=== PATIENT | male | born 1955 | race Caucasian/White ===

== ENCOUNTER → 2016-07-10 | Outpatient (CLI) | payer BC ==
[2016-07-10 07:43] LABS: MEAN CORPUSCULAR HEMOGLOBIN 30.4 pg (27.0-33.0); MEAN CORPUSCULAR HGB CONC 34.4 g/dl (32.0-36.5); MEAN CORPUSCULAR VOLUME 88.3 fl (80.0-96.0); RED CELL DISTRIBUTION WIDTH 13.2 % (11.5-14.5)
--- NOTE | 2016-07-10 07:53 | REP ---
Clinical: Chest pain. Technique: PA and lateral. Comparison: 09/19/2015. Findings: Mediastinum and cardiac silhouette are normal. Lung howell demonstrate chronic-appearing mid to lower lobe changes. Superimposed right middle lobe atelectasis cannot be excluded. No effusion. No pneumothorax. Skeletal structures intact. Impression: Chronic changes. Cannot exclude superimposed right middle lobe atelectasis. Signed by Peng Keita MD 07/10/2016 07:45 A
[2016-07-10 08:14] LABS: ALBUMIN 3.7 GM/DL (3.2-5.2); ALKALINE PHOSPHATASE 61 U/L (45-117); ALT/SGPT 47 U/L (12-78); ANION GAP 8 MEQ/L (8-16); AST/SGOT 22 U/L (15-37); BILIRUBIN,TOTAL 0.5 MG/DL (0.2-1.0); BLOOD UREA NITROGEN 13 MG/DL (7-18); CALCIUM LEVEL 8.4 MG/DL (8.5-10.1); CARBON DIOXIDE LEVEL 28 MEQ/L (21-32); CHLORIDE LEVEL 101 MEQ/L (98-107); CHOLESTEROL LEVEL 168 MG/DL (<200); CREATININE FOR GFR 0.92 MG/DL (0.70-1.30); GLOMERULAR FILTRATION RATE > 60.0 (>56); GLUCOSE, FASTING 100 MG/DL (70-105); POTASSIUM SERUM 3.8 MEQ/L (3.5-5.1); SODIUM LEVEL 137 MEQ/L (136-145); TOTAL PROTEIN 7.4 GM/DL (6.4-8.2); TRIGLYCERIDES LEVEL 272 MG/DL (<150)
--- NOTE | 2016-07-10 10:54 | ECGEPIP ---
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
== END ==
LOC: M LAB 07:09
PROVIDERS: ATTEND Family Medicine
DX: I10 Essential (primary) hypertension (principal); I20.9 Angina pectoris, unspecified

== ENCOUNTER 2016-11-28 12:25 | Emergency (ER) | payer BC ==
[~2016-11-28] VITALS: Ht 172.7 cm; Wt 109.1 kg
[2016-11-28 12:25] VITALS: BP 157/92
[2016-11-28] MEDS ORDERED: ASPI81TA85 PO (12:32)
[2016-11-28] MEDS ORDERED: PRAV40TA2 (12:32)
[2016-11-28] MEDS ORDERED: SYMB16INH (12:32)
[2016-11-28] MEDS ORDERED: TEST200I14 (12:32)
[2016-11-28] MEDS ORDERED: ALLO15TA (12:32)
[2016-11-28] MEDS ORDERED: TRIA37.53 (12:32)
[2016-11-28] MEDS ORDERED: KETOROLAC 30 MG/ML VIAL (J1885) IV ONE (13:00)
[2016-11-28 13:21] LABS: BASO # 0.1 10^3/uL (0.0-0.2); BASO % 0.4 % (0.0-1.0); EOS # 0.3 10^3/uL (0.0-0.50); EOS % 2.6 % (0.0-3.0); IMMATURE GRANULOCYTE % 0.3 % (0-0); LYMPH # 1.8 10^3/uL (1.5-4.5); LYMPH % 15.3 % (24.0-44.0); MEAN CORPUSCULAR HEMOGLOBIN 29.4 pg (27.0-33.0); MEAN CORPUSCULAR HGB CONC 34.4 g/dl (32.0-36.5); MEAN CORPUSCULAR VOLUME 85.5 fl (80.0-96.0); MONO # 0.7 10^3/uL (0.0-0.8); MONO % 6.2 % (0.0-5.0); NEUTROPHILS # 8.7 10^3/uL (1.8-7.7); NEUTROPHILS % 75.2 % (36.0-66.0); PLATELET COUNT, AUTOMATED 241 10^3/uL (150-450); RED CELL DISTRIBUTION WIDTH 12.9 % (11.5-14.5); WHITE BLOOD COUNT 11.5 10^3/uL (4.0-10.0)
[2016-11-28 13:38] LABS: ALBUMIN 3.8 GM/DL (3.2-5.2); ALBUMIN/GLOBULIN RATIO 0.86 (1.00-1.93); ALKALINE PHOSPHATASE 62 U/L (45-117); ALT/SGPT 34 U/L (12-78); ANION GAP 7 MEQ/L (8-16); AST/SGOT 11 U/L (15-37); BILIRUBIN,DIRECT 0.2 MG/DL (0.0-0.2); BILIRUBIN,TOTAL 0.7 MG/DL (0.2-1.0); BLOOD UREA NITROGEN 20 MG/DL (7-18); CALCIUM LEVEL 9.2 MG/DL (8.5-10.1); CARBON DIOXIDE LEVEL 30 MEQ/L (21-32); CHLORIDE LEVEL 99 MEQ/L (98-107); CREATININE FOR GFR 0.75 MG/DL (0.70-1.30); GLOMERULAR FILTRATION RATE > 60.0 (>56); GLUCOSE, FASTING 99 MG/DL (70-105); POTASSIUM SERUM 3.6 MEQ/L (3.5-5.1); SODIUM LEVEL 136 MEQ/L (136-145); TOTAL PROTEIN 8.2 GM/DL (6.4-8.2)
[2016-11-28] MEDS ORDERED: ISOVUE-370 76% 100ML VIAL (Q9967) As Ordered ONE (13:44)
[2016-11-28] MEDS ORDERED: CIPR-249 PO (14:44)
[2016-11-28] MEDS ORDERED: FLAG500T PO (14:44)
[2016-11-28] MEDS ORDERED: ULTR50TA8 PO (14:44)
--- NOTE | 2016-11-29 07:29 | REP ---
REASON: Left lower quadrant pain. COMPARISON: None. CONTRAST: 100 mL Isovue 370 There are a few asymmetric lung base opacities likely subsegmental atelectatic changes. There are no pleural or pericardial effusions. The liver, gallbladder, spleen, pancreas, adrenal glands, and kidneys are within normal limits. In the interpolar region of the right kidney, there is a 2 cm size simple cortical cyst. This is slightly hyperdense but has smooth margins. Small simple cysts are also seen in the left kidney. The abdominal aorta and para-aortic regions are within normal limits. There is no evidence of free fluid or free air in the abdomen. In the distal descending colon/proximal sigmoid colon, there is wall thickening and fatty infiltration. This is seen amidst multiple diverticula. CT PELVIS: There is no free fluid or free air. There is no mass or adenopathy. Bone window technique throughout the examination shows the osseous structures to be within normal limits for the patient's age. There are bilateral hip degenerative changes and spinal degenerative changes. IMPRESSION: There is descending colon/sigmoid colon diverticulitis. Other findings as described above. Signed by Aki Mayo DO 11/29/2016 12:09 P
== END 2016-11-28 14:50 | disposition home or self-care (01) ==
LOC: M ED 12:25
DX: K57.32 Diverticulitis of large intestine without perforation or abscess without bleeding (principal); I10 Essential (primary) hypertension; E66.9 Obesity, unspecified; Z79.82 Long term (current) use of aspirin; Z79.899 Other long term (current) drug therapy; Z82.49 Family history of ischemic heart disease and other diseases of the circulatory system
CPT/HCPCS: 74177; 80048; 80076; 81001; 83690; 85025; 96374; 99283; J1885; Q9967

== ENCOUNTER → 2017-02-05 | Outpatient (CLI) | payer BC ==
[~2017-02-05] MED LIST: ALLO15TA; ASPI81TA85 PO; CIPR-249 PO; FLAG500T PO; PRAV40TA2; SYMB16INH; TEST200I14; TRIA37.53; ULTR50TA8 PO
[2017-02-05 09:31] LABS: MEAN CORPUSCULAR HEMOGLOBIN 29.3 pg (27.0-33.0); MEAN CORPUSCULAR HGB CONC 33.7 g/dl (32.0-36.5); MEAN CORPUSCULAR VOLUME 87.1 fl (80.0-96.0); PLATELET COUNT, AUTOMATED 183 10^3/uL (150-450); RED CELL DISTRIBUTION WIDTH 13.9 % (11.5-14.5); WHITE BLOOD COUNT 4.9 10^3/uL (4.0-10.0)
[2017-02-05 10:12] LABS: ALKALINE PHOSPHATASE 62 U/L (45-117); ALT/SGPT 47 U/L (12-78); ANION GAP 3 MEQ/L (8-16); AST/SGOT 26 U/L (7-37); BILIRUBIN,TOTAL 0.6 MG/DL (0.2-1.0); BLOOD UREA NITROGEN 12 MG/DL (7-18); CALCIUM LEVEL 8.8 MG/DL (8.5-10.1); CARBON DIOXIDE LEVEL 36 MEQ/L (21-32); CHLORIDE LEVEL 100 MEQ/L (98-107); CHOLESTEROL LEVEL 193 MG/DL (<200); CREATININE FOR GFR 0.82 MG/DL (0.70-1.30); GLOMERULAR FILTRATION RATE > 60.0 (>56); GLUCOSE, FASTING 92 MG/DL (70-105); POTASSIUM SERUM 4.3 MEQ/L (3.5-5.1); SODIUM LEVEL 139 MEQ/L (136-145); TRIGLYCERIDES LEVEL 249 MG/DL (<150)
[2017-02-08 00:06] LABS: Lyme Disease IgG/IgM Antibodie <0.91 ISR (0.00-0.90); Lyme Disease IgM Ab Quantitati <0.80 index (0.00-0.79)
== END ==
LOC: M LAB 09:10
PROVIDERS: ATTEND Family Medicine
DX: D64.9 Anemia, unspecified (principal); R53.83 Other fatigue; N40.0 Benign prostatic hyperplasia without lower urinary tract symptoms; I10 Essential (primary) hypertension

== ENCOUNTER → 2018-02-04 | Outpatient (CLI) | payer BC ==
[2018-02-04 09:55] LABS: HEMATOCRIT 50.9 % (42.0-52.0); HEMOGLOBIN 17.4 g/dl (13.5-17.5); MEAN CORPUSCULAR HEMOGLOBIN 29.9 pg (27.0-33.0); MEAN CORPUSCULAR HGB CONC 34.2 g/dl (32.0-36.5); MEAN CORPUSCULAR VOLUME 87.5 fl (80.0-96.0); PLATELET COUNT, AUTOMATED 194 10^3/uL (150-450); RED BLOOD COUNT 5.82 10^6/uL (4.30-6.10); WHITE BLOOD COUNT 6.2 10^3/uL (4.0-10.0)
[2018-02-04 10:27] LABS: ALBUMIN 3.8 GM/DL (3.2-5.2); ALT/SGPT 41 U/L (12-78); BILIRUBIN,TOTAL 0.4 MG/DL (0.2-1.0); BLOOD UREA NITROGEN 22 MG/DL (7-18); CALCIUM LEVEL 8.8 MG/DL (8.8-10.2); CARBON DIOXIDE LEVEL 33 MEQ/L (21-32); CHLORIDE LEVEL 103 MEQ/L (98-107); CHOLESTEROL LEVEL 163 MG/DL (<200); CHOLESTEROL RISK RATIO 4.289 (<5); CREATININE FOR GFR 0.78 MG/DL (0.70-1.30); GLOMERULAR FILTRATION RATE > 60.0 (>49); GLUCOSE, FASTING 101 MG/DL (70-100); HDL CHOLESTEROL 38 MG/DL (>40); LDL CHOLESTEROL 93 MG/DL (<100); NON-HDL-C 125 MG/DL; POTASSIUM SERUM 4.8 MEQ/L (3.5-5.1); PROSTATIC SPECIFIC AG MONITOR 0.5 NG/ML (< 4.0); SODIUM LEVEL 140 MEQ/L (136-145); THYROID STIMULATING HORMONE 0.213 uIU/ML (0.358-3.740); TOTAL PROTEIN 7.5 GM/DL (6.4-8.2); TRIGLYCERIDES LEVEL 158 MG/DL (<150)
[2018-02-04 10:29] LABS: TESTOSTERONE 172 NG/DL (241-827)
[2018-02-04 10:40] LABS: HEMOGLOBIN A1c 5.9 %
--- NOTE | 2018-02-04 10:46 | REP ---
REASON: Hypertension. COMPARISON: Multiple latest 07/10/2016. FINDINGS: The superior mediastinal structures are midline. The cardiac silhouette is unremarkable in size, shape, and position. The diaphragmatic surfaces of the lungs are regular, and the costophrenic angles are clear. The pulmonary howell are clear. The imaged osseous structures are intact. IMPRESSION: There is no acute cardiopulmonary disease. Electronically Signed by Aki Mayo DO 02/04/2018 11:15 A
--- NOTE | 2018-02-05 22:05 | ECGEPIP ---
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 COMPARED TO THE LAST TWO TRACINGS Electronically Signed On 02-05-2018 22:05:20 EST by Arnaud Pedro
== END ==
LOC: M LAB 09:14
PROVIDERS: ATTEND Family Medicine
DX: I10 Essential (primary) hypertension (principal); R53.83 Other fatigue; E03.9 Hypothyroidism, unspecified

== ENCOUNTER 2018-04-03 08:51 | Day surgery (SDC) | payer BC ==
[~2018-04-03] VITALS: Ht 172.7 cm; Wt 106.0 kg
[~2018-04-03 08:51] MED LIST changes: +LEVO175T2 PO; +NS 1,000 ML IV ONE; -PRAV40TA2; +PRAV40TA2 PO; +PROAAER10 INH; -SYMB16INH; +SYMB16INH INH; -TEST200I14; +TEST200I14 IM; -TRIA37.53; +TRIA37.53 PO; +ZYLO300T6 PO
[2018-04-03] MEDS ORDERED: PROPOFOL 200 MG/20 ML VIAL As Ordered ONE (09:37)
[2018-04-03] MEDS ORDERED: LIDOCAINE 2% INJ 100 MG/5 ML SDV (FOR ANES.) As Ordered ONE (09:37)
--- NOTE | 2018-04-03 10:49 | ROOR ---
Patient Name: Yobany Morales Procedure Date: 04/03/2018 10:27 AM Date of : 1955 Age: 62 Room: [facility] Gender: Male Note Status: Finalized Procedure: Total Colonoscopy to Cecum Indications: Screening for colorectal malignant neoplasm Providers: Riki Ochoa MD Referring MD: PETER MOYER MD Requesting Provider: Medicines: Monitored Anesthesia Care Complications: No immediate complications. Procedure: Pre-Anesthesia Assessment: - The heart rate, respiratory rate, oxygen saturations, blood pressure, adequacy of pulmonary ventilation, and response to care were monitored throughout the procedure. The Colonoscope was introduced through the anus and advanced to the cecum, identified by appendiceal orifice and ileocecal valve. The colonoscopy was performed without difficulty. The patient tolerated the procedure well. The quality of the bowel preparation was good. Findings: The perianal and digital rectal examinations were normal. Non-bleeding internal hemorrhoids were found during retroflexion. The hemorrhoids were small and Grade I (internal hemorrhoids that do not prolapse). Multiple small and large-mouthed diverticula were found in the recto-sigmoid colon, sigmoid colon and descending colon. The exam was otherwise without abnormality on direct and retroflexion views. Impression: - Non-bleeding internal hemorrhoids. - Diverticulosis in the recto-sigmoid colon, in the sigmoid colon and in the descending colon. - The examination was otherwise normal on direct and retroflexion views. - No specimens collected. - The exam was otherwise normal to the cecum. Recommendation: - Patient has a contact number available for emergencies. The signs and symptoms of potential delayed complications were discussed with the patient. Return to normal activities tomorrow. Written discharge instructions were provided to the patient. - High fiber diet. - Discharge patient to home. - Continue present medications. - Repeat colonoscopy in 10 years for screening purposes. - Return to referring physician. - The findings and recommendations were discussed with the patient's family. Riki Ochoa MD Riki Ochoa MD 04/03/2018 10:49:45 AM This report has been signed electronically. Number of Addenda: 0 Note Initiated On: 04/03/2018 10:27 AM Estimated Blood Loss: Estimated blood loss: none.
[2018-04-03 11:10] VITALS: BP 140/89
== END 2018-04-03 11:32 | disposition home or self-care (01) ==
LOC: M OPP 08:51
PROVIDERS: ATTEND Internal Medicine Gastroenterology
DX: Z12.11 Encounter for screening for malignant neoplasm of colon (principal); K64.0 First degree hemorrhoids; K57.30 Diverticulosis of large intestine without perforation or abscess without bleeding; Z79.82 Long term (current) use of aspirin; Z79.899 Other long term (current) drug therapy

== ENCOUNTER → 2019-02-25 | Outpatient (CLI) | payer BC ==
[~2019-02-25] MED LIST changes: -ALLO15TA; +ALLO300T2; -NS 1,000 ML IV ONE
[2019-02-25 08:49] LABS: HEMATOCRIT 54.6 % (42.0-52.0); HEMOGLOBIN 18.3 g/dl (13.5-17.5); MEAN CORPUSCULAR HEMOGLOBIN 28.7 pg (27.0-33.0); MEAN CORPUSCULAR HGB CONC 33.5 g/dl (32.0-36.5); MEAN CORPUSCULAR VOLUME 85.7 fl (80.0-96.0); PLATELET COUNT, AUTOMATED 169 10^3/uL (150-450); RED BLOOD COUNT 6.37 10^6/uL (4.30-6.10); WHITE BLOOD COUNT 5.3 10^3/uL (4.0-10.0)
[2019-02-25 09:04] LABS: ALT/SGPT 48 U/L (12-78); BILIRUBIN,TOTAL 0.5 MG/DL (0.2-1.0); BLOOD UREA NITROGEN 16 MG/DL (7-18); CALCIUM LEVEL 9.1 MG/DL (8.8-10.2); CARBON DIOXIDE LEVEL 27 MEQ/L (21-32); CHLORIDE LEVEL 104 MEQ/L (98-107); CHOLESTEROL LEVEL 192 MG/DL (<200); CHOLESTEROL RISK RATIO 4.465 (<5); CREATININE FOR GFR 0.83 MG/DL (0.70-1.30); GLOMERULAR FILTRATION RATE > 60.0 (>49); GLUCOSE, FASTING 95 MG/DL (70-100); HDL CHOLESTEROL 43 MG/DL (>40); LDL CHOLESTEROL 110 MG/DL (<100); NON-HDL-C 149 MG/DL; POTASSIUM SERUM 3.8 MEQ/L (3.5-5.1); PROSTATIC SPECIFIC AG MONITOR 0.42 NG/ML (< 4.00); SODIUM LEVEL 139 MEQ/L (136-145); THYROID STIMULATING HORMONE 0.919 uIU/ML (0.358-3.740); TOTAL PROTEIN 7.9 GM/DL (6.4-8.2); TRIGLYCERIDES LEVEL 197 MG/DL (<150)
--- NOTE | 2019-02-25 09:21 | REP ---
CHEST X-RAY: Two views. HISTORY: Hypertension. Comparison chest x-rays are reviewed from February 04, 2018 and July 10, 2016. FINDINGS: There is bilateral chronic fibrosis in the right middle lobe and lingular segment left upper lobe distribution unchanged. Pleural angles are sharp. Lung howell are otherwise clear. Heart is not enlarged. There are mild degenerative changes in the thoracic spine. There is glenohumeral spurring noted on the right unchanged. 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 Otherwise no acute disease. Electronically Signed by Josh Lawrence MD 02/25/2019 10:37 A
--- NOTE | 2019-02-25 10:31 | ECGEPIP ---
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
[2019-02-26 08:54] LABS: TESTOSTERONE 204 NG/DL (241-827)
== END ==
LOC: M LAB 08:05
PROVIDERS: ATTEND Family Medicine
DX: I10 Essential (primary) hypertension (principal); R53.83 Other fatigue

== ENCOUNTER → 2020-03-30 | Outpatient (CLI) | payer BC ==
[~2020-03-30] MED LIST changes: -ASPI81TA85 PO; +ASPI81TA86 PO
[2020-03-30 10:14] LABS: HEMATOCRIT 51.6 % (42.0-52.0); HEMOGLOBIN 17.7 g/dl (13.5-17.5); MEAN CORPUSCULAR HEMOGLOBIN 29.5 pg (27.0-33.0); MEAN CORPUSCULAR HGB CONC 34.3 g/dl (32.0-36.5); PLATELET COUNT, AUTOMATED 210 10^3/uL (150-450); WHITE BLOOD COUNT 6.9 10^3/uL (4.0-10.0)
[2020-03-30 10:29] LABS: HEMOGLOBIN A1c 5.4 %
[2020-03-30 10:43] LABS: ALBUMIN 3.9 GM/DL (3.2-5.2); ALT/SGPT 39 U/L (12-78); BILIRUBIN,TOTAL 0.6 MG/DL (0.2-1.0); BLOOD UREA NITROGEN 24 MG/DL (7-18); CALCIUM LEVEL 8.9 MG/DL (8.8-10.2); CARBON DIOXIDE LEVEL 30 MEQ/L (21-32); CHLORIDE LEVEL 103 MEQ/L (98-107); CHOLESTEROL LEVEL 185 MG/DL (<200); CHOLESTEROL RISK RATIO 4.625 (<5); GLOMERULAR FILTRATION RATE > 60.0 (>49); GLUCOSE, FASTING 99 MG/DL (70-100); HDL CHOLESTEROL 40 MG/DL (>40); LDL CHOLESTEROL 107 MG/DL (<100); NON-HDL-C 145 MG/DL; POTASSIUM SERUM 3.9 MEQ/L (3.5-5.1); PROSTATIC SPECIFIC AG MONITOR 2.85 NG/ML (< 4.00); SODIUM LEVEL 140 MEQ/L (136-145); THYROID STIMULATING HORMONE 0.789 uIU/ML (0.358-3.740); TOTAL PROTEIN 7.7 GM/DL (6.4-8.2); TRIGLYCERIDES LEVEL 190 MG/DL (<150)
--- NOTE | 2020-03-30 10:56 | REP ---
INDICATION: HTN,DM,FATIGUE,HYPOTHYROIDISM/ LABS COMPARISON: 02/25/2019. TECHNIQUE: PA/Lateral FINDINGS: Lungs: There is no acute infiltrate. There is chronic fibrotic change again seen in the right middle lobe and lingula, unchanged. Heart: Normal in size. Mediastinum: There is calcification of the thoracic aorta. The mediastinal silhouette is unchanged. Pleural angles: Unremarkable.. Bones and soft tissues: There are mild degenerative changes of the spine without compression deformity. IMPRESSION: No acute pulmonary disease. Stable chronic changes. <Electronically signed by Mike Silva > 03/30/20 105
--- NOTE | 2020-03-30 11:51 | ECGEPIP ---
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 Normal sinus rhythm Left atrial conduction disturbance Borderline first-degree AV block No significant change from 02/25/19. Electronically Signed on 03-30-2020 11:51:05 EST by Dionicio Bird
[2020-03-31 10:37] LABS: TESTOSTERONE 164 NG/DL (241-827)
== END ==
LOC: M LAB 09:31
PROVIDERS: ATTEND Family Medicine
DX: R94.31 Abnormal electrocardiogram [ECG] [EKG] (principal); E03.9 Hypothyroidism, unspecified; R53.83 Other fatigue; I10 Essential (primary) hypertension; E11.9 Type 2 diabetes mellitus without complications

== ENCOUNTER 2020-04-12 15:35 | Emergency (ER) | payer OTHER, BC ==
[~2020-04-12] VITALS: Ht 172.7 cm; Wt 111.3 kg
--- OUTSIDE RECORDS SUMMARY | 2020-04-12 15:41 | CCD ---
Author Author [facility] Organization [facility] Address Unknown Phone Unavailable Care Team Providers Care Travel Pt Name Role Phone Maverick, N Marlo SAND SCREENER Unavailable Unavailable Maverick, N Marlo SAND SCREENER Unavailable Unavailable [place], N Marlo SAND SCREENER Unavailable Unavailable [place], N Marlo SAND SCREENER Unavailable Unavailable Maverick, N Marlo SAND SCREENER Unavailable Unavailable [place], N Marlo SAND SCREENER Unavailable Unavailable Maver[place], N Marlo SAND SCREENER Unavailable Unavailable [place]ver[place], N Marlo SAND SCREENER Unavailable Unavailable [place], N Marlo SAND SCREENER Unavailable Unavailable Maver[place], N Marlo SAND SCREENER Unavailable Unavailable Maver[place], N Marlo SAND SCREENER Unavailable Unavailable Maver[place], N Marlo SAND SCREENER Unavailable Unavailable [place], N Marlo SAND SCREENER Unavailable Unavailable Maverick, N Marlo SAND SCREENER Unavailable Unavailable [place], N Marlo SAND SCREENER Unavailable Unavailable Maver[place], N Marlo SAND SCREENER Unavailable Unavailable Maver[place], N Marlo SAND SCREENER Unavailable Unavailable [place], N Marlo SAND SCREENER Unavailable Unavailable Maver[place], N Marlo SAND SCREENER Unavailable Unavailable [place], N Marlo SAND SCREENER Unavailable Unavailable [place], N Marlo SAND SCREENER Unavailable Unavailable Ma[place], N Marlo SAND SCREENER Unavailable Unavailable [place], N Marlo SAND SCREENER Unavailable Unavailable Maver[place], N Marlo SAND SCREENER Unavailable Unavailable [place], N Marlo SAND SCREENER Unavailable Unavailable [place], N Marlo SAND SCREENER Unavailable Unavailable [place], N Marlo SAND SCREENER Unavailable Unavailable [place], N Marlo SAND SCREENER Unavailable Unavailable [place], N Marlo SAND SCREENER Unavailable Unavailable Maver[place], N Marlo SAND SCREENER Unavailable Unavailable [place], N Marlo SAND SCREENER Unavailable Unavailable Re-disclosure Warning The records that you are about to access may contain information from federally-assisted alcohol or drug abuse programs. If such information is present, then the following federally mandated warning applies: This information has been disclosed to you from records protected by federal confidentiality rules (42 CFR part 2). The federal rules prohibit you from making any further disclosure of this information unless further disclosure is expressly permitted by the written consent of the person to whom it pertains or as otherwise permitted by 42 CFR part 2. A general authorization for the release of medical or other information is NOT sufficient for this purpose. The Federal rules restrict any use of the information to criminally investigate or prosecute any alcohol or drug abuse patient.The records that you are about to access may contain highly sensitive health information, the redisclosure of which is protected by Article 27-F of the [facility] Public [facility] law. If you continue you may have access to information: Regarding HIV / AIDS; Provided by facilities licensed or operated by the [facility] Office of Mental Health; or Provided by the [facility] Office for People With Developmental Disabilities. If such information is present, then the following [facility] mandated warning applies: This information has been disclosed to you from confidential records which are protected by state law. State law prohibits you from making any further disclosure of this information without the specific written consent of the person to whom it pertains, or as otherwise permitted by law. Any unauthorized further disclosure in violation of state law may result in a fine or prison sentence or both. A general authorization for the release of medical or other information is NOT sufficient authorization for further disc losure. Family History Family Member Name Family Member Gender Family Member Status Date o f Status Description Data Source(s) Unknown Female Problem [facility] ([facility]) Encounters Encounter Providers Location Date Indications Data Source(s ) Outpatient Referrer: Marlo NERI-SJPCrissyKENA 01/14/2020 12 :00:00 AM EST [facility] Outpatient Attender: Marlo NERI-SJPCrissyKENA 020 01:22:56 PM EDT - 12/10/2019 01:50:39 PM EDT [facility] 03/13/2019 08:03:00 PM EST [facility] Medications Medication Brand Name Start Date Product Form Dose Route Admi nistrative Instructions Pharmacy Instructions Status Indications Reaction Description Data Source(s) 300 mg 03/06/2020 12:00:00 AM EST tablet 90 TAKE ONE TABLET BY MOUTH EVERY DAY TAKE ONE TABLET BY MOUTH EVERY DAY SOLD: 03/08/2020 [facility] 175 mcg 03/06/2020 12:00:00 AM EST tablet 90 TAKE ONE TABLET BY MOUTH EVERY DAY TAKE ONE TABLET BY MOUTH EVERY DAY SOLD: 03/08/2020 [facility] 40 mg 03/06/2020 12:00:00 AM EST tablet 90 TAKE ONE TABLET BY MOUTH EVERY DAY TAKE ONE TABLET BY MOUTH EVERY DAY SOLD: 03/08/2020 [facility] 37.5-25 mg 03/06/2020 12:00:00 AM EST capsule 90 TAKE ONE CAPSULE BY MOUTH EVERY DAY TAKE ONE CAPSULE BY MOUTH EVERY DAY SOLD: 03/08/2020 [facility] 200 mg/mL 12/21/2019 12:00:00 AM EDT oil 10 INJECT 2ML INTRAMUSCULARLY ONCE EVERY 2 WEEKS MAXIMUM DAILY DOSE = 2ML/2WEEKS INJECT 2ML INTRAMUSCULARLY ONCE EVERY 2 WEEKS MAXIMUM DAILY DOSE = 2ML/2WEEKS SOLD: 12/21/2019 [facility] 160-4.5 mcg/actuation 12/21/2019 12:00:00 AM EDT HFA aerosol inhaler 10 INHALE ONE PUFF BY MOUTH TWICE A DAY INHALE ONE PUFF BY MOUTH TWICE A DAY SOLD: 12/21/2019 [facility] 160-4.5 mcg/actuation 12/21/2019 12:00:00 AM EDT HFA aerosol inhaler 10 INHALE ONE PUFF BY MOUTH TWICE A DAY INHALE ONE PUFF BY MOUTH TWICE A DAY SOLD: 03/25/2020 [facility] 90 mcg/actuation 12/21/2019 12:00:00 AM EDT HFA aerosol inha ler 17 INHALE TWO PUFFS BY MOUTH FOUR TIMES A DAY INHALE TWO PUFFS BY MOUTH FOUR TIMES A DAY SOLD: 12/21/2019 [facility] 37.5-25 mg 11/23/2019 12:00:00 AM EDT capsule 90 TAKE ONE CAPSULE BY MOUTH EVERY DAY TAKE ONE CAPSULE BY MOUTH EVERY DAY SOLD: 11/23/2019 [facility] 300 mg 11/23/2019 12:00:00 AM EDT tablet 90 TAKE ONE TABLET BY MOUTH EVERY DAY TAKE ONE TABLET BY MOUTH EVERY DAY SOLD: 11/23/2019 [facility] 175 mcg 11/23/2019 12:00:00 AM EDT tablet 90 TAKE ONE TABLET BY MOUTH EVERY DAY TAKE ONE TABLET BY MOUTH EVERY DAY SOLD: 11/23/2019 [facility] 40 mg 11/23/2019 12:00:00 AM EDT tablet 90 TAKE ONE TABLET BY MOUTH EVERY DAY TAKE ONE TABLET BY MOUTH EVERY DAY SOLD: 11/23/2019 [facility] 200 mg/mL 11/21/2019 12:00:00 AM EDT oil 4 INJECT 2 ML INTRAMUSCULARLY EVERY 2 WEEKS MAXIMUM DAILY DOSE = 2ML/2 WEEKS INJECT 2 ML INTRAMUSCULARLY EVERY 2 WEEKS MAXIMUM DAILY DOSE = 2ML/2 WEEKS SOLD: 11/21/2019 [facility] 0.3 % 11/09/2019 12:00:00 AM EDT drops 5 INSTILL 1 DROP INTO THE LEFT EYE FOUR TIMES A DAY INSTILL 1 DROP INTO THE LEFT EYE FOUR TIMES A DAY SOLD : 11/09/2019 [facility] 200 mg/mL 10/29/2019 12:00:00 AM EDT oil 1 INJECT 1 ML INTRAMUSCULARLY EVERY 2 WEEKS MAXIMUM DAILY DOSE = 1 ML EVERY 2 WEEKS INJECT 1 ML INTRAMUSCULARLY EVERY 2 WEEKS MAXIMUM DAILY DOSE = 1 ML EVERY 2 WEEKS SOLD: 10/31/2019 [facility] 200 mg/mL 10/16/2019 12:00:00 AM EDT oil 1 INJECT 1 ML INTRAMUSCULARLY EVERY 2 WEEKS INJECT 1 ML INTRAMUSCULARLY EVERY 2 WEEKS SOLD: 10/16/2019 [facility] 200 mg/mL 08/30/2019 12:00:00 AM EDT oil 1 INJECT 1ML INTRAMUSCULARLY ONCE EVERY 2 WEEKS MAXIMUM DAILY DOSE = 1ML/2 WEEKS INJECT 1ML INTRAMUSCULARLY ONCE EVERY 2 WEEKS MAXIMUM DAILY DOSE = 1ML/2 WEEKS SOLD: 09/01/2019 [facility] 37.5-25 mg 08/30/2019 12:00:00 AM EDT capsule 90 TAKE ONE CAPSULE BY MOUTH EVERY DAY TAKE ONE CAPSULE BY MOUTH EVERY DAY SOLD: 09/01/2019 [facility] 300 mg 08/30/2019 12:00:00 AM EDT tablet 90 TAKE ONE TABLET BY MOUTH EVERY DAY TAKE ONE TABLET BY MOUTH EVERY DAY SOLD: 09/01/2019 [facility] 40 mg 08/30/2019 12:00:00 AM EDT tablet 90 TAKE ONE TABLET BY MOUTH EVERY DAY TAKE ONE TABLET BY MOUTH EVERY DAY SOLD: 09/01/2019 [facility] 175 mcg 08/30/2019 12:00:00 AM EDT tablet 90 TAKE ONE TABLET BY MOUTH EVERY DAY TAKE ONE TABLET BY MOUTH EVERY DAY SOLD: 09/01/2019 [facility] 160-4.5 mcg/actuation 08/30/2019 12:00:00 AM EDT HFA aerosol inhaler 10 INHALE ONE PUFF BY MOUTH TWICE A DAY INHALE ONE PUFF BY MOUTH TWICE A DAY SOLD: 09/01/2019 [facility] 90 mcg/actuation 08/30/2019 12:00:00 AM EDT HFA aerosol inha ler 17 INHALE TWO PUFFS BY MOUTH FOUR TIMES A DAY INHALE TWO PUFFS BY MOUTH FOUR TIMES A DAY SOLD: 09/01/2019 [facility] 300 mg 06/01/2019 12:00:00 AM EDT tablet 90 TAKE ONE TABLET BY MOUTH EVERY DAY TAKE ONE TABLET BY MOUTH EVERY DAY SOLD: 06/01/2019 [facility] 175 mcg 06/01/2019 12:00:00 AM EDT tablet 90 TAKE ONE TABLET BY MOUTH EVERY DAY TAKE ONE TABLET BY MOUTH EVERY DAY SOLD: 06/01/2019 [facility] Pravastatin Sodium 40 MG Oral Tablet PRAVASTATIN SODIUM 11/2019 12:00:00 AM EDT tablet 90 TAKE ONE TABLET BY MOUTH TAKE ONE TABLET BY MOUTH EVERY DAY SOLD: 06/01/2019 [facility] 37.5-25 mg 06/01/2019 12:00:00 AM EDT capsule 90 TAKE ONE CAPSULE BY MOUTH EVERY DAY TAKE ONE CAPSULE BY MOUTH EVERY DAY SOLD: 06/01/2019 [facility] 500 mg 06/01/2019 12:00:00 AM EDT capsule 30 TAKE ONE CAPSULE BY MOUTH THREE TIMES A DAY TAKE ONE CAPSULE BY MOUTH THREE TIMES A DAY SOLD: 06/01/2019 [facility] 160-4.5 mcg/actuation 10/13/2018 12:00:00 AM EDT HFA aerosol inhaler 10 INHALE ONE PUFF BY MOUTH EVERY DAY IN THE MORNING INHALE ONE PUFF BY MOUTH EVERY DAY IN THE MORNING SOLD: 05/15/2019 [facility] Insurance Providers Payer name Policy type / Coverage type Policy ID Covered green party ID Covered green party's relationship to bryan Policy Bryan Plan Information [employer] PPO 302/[phone] [id number] SP [id number] [employer]BS [id number] Sushma CGP [id number] [employer] BCBS B [id number] S [id number] [id number] BCBS FEDERAL EMPLOYEE PROGRAM [id number] SP [id number] [employer] [place] Commercial [id number] Self [id number] BC [place] B [id number] S [id number] [employer] BCBS FEDERAL [id number] SP [id number] [place] P[place] 302/[id number] SP [id number] [place] BC-BS PPO [id number] SP [id number] EX[place] BC-BS PPO [id number] SP [id number] BCBS [place] PPO 302/307 [id number] SP [id number] Problems, Conditions, and Diagnoses Code Display Name Description Problem Type Effective Dates Data Source(s) R94.31 Abnormal electrocardiogram [ECG] [EKG] A bnormal electrocardiogram (ECG) (EKG) Diagnosis 12/10/2019 01:22:56 PM EDT [facility] I77.810 Thoracic aortic ectasia Thoracic aortic ectasia Diagno sis 12/10/2019 01:22:56 PM EDT [facility] R07.89 Other chest pain Other chest pain Diagnosis 12/10/2019 01 :22:56 PM EDT [facility] Results ID Date Data Source [id number] 01/14/2020 06:39:40 PM EST [facility] Name Value Range Interpretation Code Description Data Josie rce(s) Supporting Document(s) &PDF [facility] WYLEOj4eNcBHXlBa42/GIWfsYBIdj9FwRNifESd0QKeeZHYbV9JhaZsgIKQITZHXZLECPPDcSJrMYiNW hdG [file] ICAgICAgICAgICAgICAgICAgICAgICAgICAgICAgICAgICAgICAgICAgICAgICAgICAgICAgICAgICAN CiAgICAgICAgICAgICAgICAgICAgICAgICAgICAgIC AgICAgICAgICAgICAgICAgICAgICAgICAgICAgICAgICAgICAgICAgICAgICAgICAgICAgICAgICAgIC AgICAgICAgICANCiAgICAgICAgICAgICAgICAgICAgICAgICAgICAgICAgICAgICAgICAgICAgICAgIC AgICAgICAgICAgICAgICAgICAgICAgICAgICAgICAg ICAgICAgICAgICAgICAgICAgICANCiAgICAgICAgICAgICAgICAgICAgICAgICAgICAgICAgICAgICAg ICAgICAgICAgICAgICAgICAgICAgICAgICAgICAgICAgICAgICAgICAgICAgICAgICAgICAgICAgICAg ICANCiAgICAgICAgICAgICAgICAgICAgICAgICAgIC AgICAgICAgICAgICAgICAgICAgICAgICAgICAgICAgICAgICAgICAgICAgICAgICAgICAgICAgICAgIC AgICAgICAgICAgICANCiAgICAgICAgICAgICAgICAgICAgICAgICAgICAgICAgICAgICAgICAgICAgIC AgICAgICAgICAgICAgICAgICAgICAgICAgICAgICAg ICAgICAgICAgICAgICAgICAgICAgICANCiAgICAgICAgICAgICAgICAgICAgICAgICAgICAgICAgICAg ICAgICAgICAgICAgICAgICAgICAgICAgICAgICAgICAgICAgICAgICAgICAgICAgICAgICAgICAgICAg ICAgICANCiAgICAgICAgICAgICAgICAgICAgICAgIC AgICAgICAgICAgICAgICAgICAgICAgICAgICAgICAgICAgICAgICAgICAgICAgICAgICAgICAgICAgIC AgICAgICAgICAgICAgICANCiAgICAgICAgICAgICAgICAgICAgICAgICAgICAgICAgICAgICAgICAgIC AgICAgICAgICAgICAgICAgICAgICAgICAgICAgICAg ICAgICAgICAgICAgICAgICAgICAgICAgICANCiAgICAgICAgICAgICAgICAgICAgICAgICAgICAgICAg ICAgICAgICAgICAgICAgICAgICAgICAgICAgICAgICAgICAgICAgICAgICAgICAgICAgICAgICAgICAg ICAgICAgICANCjw/rLMwW0fufJLkbfY3A8fcUh3IYg 2FKZ8im7XnNFJrIAunldYeNbiCTmTkVIThQfoEQoy3VGooBA6AbKWiX7NaZ4PzENnaHY3VONRzIWItzC YoODKnKRGcYpT7LDZqXMpaYF5MpNVaISviSPHkDKPrRqGhFJKbTP5JZYXbH996bsYhMi6XJb7EYrWdWV 9vdm7DAeEhGEMlJxjBFhm6MNqmSK1EbKBaE0GtuYZm k5pWDgQfN3DZDKE9FNMrPe7HEWPqYsEzBAHdUQyuHP5zSVVhZJRQuPowduO8ZZ2NHR6vmtStXB8IQyEr Ng9aQi6LAeOeQ2JvE1SjHGPgZYTOBZicOG6ABHYgKEI1LNKtDXJvECBQPbDpD66xUX9TN0Zrv10vHoQ2 MSBvRdKzYFywNW36xXipfmKghIImpSswLQ2PRm2+DQ uomgPhShoKKtlsLEWATjPjOvGKShNsIKUqBEAuPGUbVhE8XwQrAu5RCXRtFVHsPHJmIcIlTMLtQNBqNA fhDZIkYYN4QPH5HEKkCUDcFG1DFbKkVGOiWTh3FdvmWYTpLFEqmd9HXEYtMMJrWLB9WGPnRUCnTTIkFZ xjKUXqGSPrWnD6ROWwXORqMG7RAuYpZEWgIVJ1IyDf HHGlBQVwvk1WXSNjUJDrYJX7AwQbZSCpWPMfZXqkYLUoGEC1GfB7CJTiANIkDB7SJoTfSVHkOMYkRXAq CLQrDTVlnu6SDVVyANRbHqTkJeXdPVUmQTFaJQwmSIPnUZN5XvonSUBxCLBjDX1EJpRtSHCwBVi9WKDr XXMvQBZtzr1KSLKoKECdNrr1FBKdLIRqMLFxOQutZQ KaXZR7JPSpWDOhIVAmUU1APgNmEATlZJzpKVEsSBHjQMWusk3LHMSiCUHrOBAdSKMwDPDoAHGvEQqvWO DsLEW4Tub1FPClPFSdDX5NYrKnATVpRHNrPcnxUVFpRBAgrt7CXNYeOQWjDNV0OtKbFTJzNUNeUOxqBA YjAJH0YTE9XRUhTWZyIS6TSqKqUTWoXDe9CrLvQTSj WMRcrh5TzFNrhXzfqd6YEJeHUz0YfWpgBCHrQDyfYk7iqALiLGGwDUIXWp2TneTeZLGsWKAVYPnbGOMt JPZ3KyorQTD0GNBdOCN4DJU9LSIzLSP4FxZsLyOwIuRwTfD0BrSmP2IbMGJqMYPfPMbbCLf1QVC7BRo0 MjAyNmJiMGQ+NN8tPMr+Pv9Jo5OizjU4aeAvZWudOAD5EC8XJCLEF7FAKb== Procedure
--- NOTE | 2020-04-12 16:41 | REP ---
INDICATION: swelling/pain. COMPARISON: None. TECHNIQUE: Five views FINDINGS: Small spurs the tibial spines and peripheral joint margins noted. Likewise Paulino superior pole patellar articular spur representing very mild tricompartment arthritis there is no joint space narrowing, fracture or loose body. I see no patellar subluxation. The lateral view raises question of a small suprapatellar effusion. There is a bony fabella posterior to the knee on the lateral view as an anatomic normal variation. No fracture, osteochondral defect or loose body. IMPRESSION: Minor tricompartment osteoarthritic change without joint space narrowing, loose body, osteochondral defect or fracture. Question raised of a small joint effusion. No other significant finding. <Electronically signed by Yonis Gilliam > 04/12/20 2252
--- OUTSIDE RECORDS SUMMARY | 2020-04-12 16:41 | CCD ---
Author Author [facility] Organization [facility] Address Unknown Phone Unavailable Care Team Providers Care Tour Coordinator Name Role Phone Maverick, N Marlo EMBALMER APPRENTICE Unavailable Unavailable Maverick, N Marlo EMBALMER APPRENTICE Unavailable Unavailable [place], N Marlo EMBALMER APPRENTICE Unavailable Unavailable [place], N Marlo EMBALMER APPRENTICE Unavailable Unavailable Maverick, N Marlo EMBALMER APPRENTICE Unavailable Unavailable [place], N Marlo EMBALMER APPRENTICE Unavailable Unavailable Maver[place], N Marlo EMBALMER APPRENTICE Unavailable Unavailable Maver[place], N Marlo EMBALMER APPRENTICE Unavailable Unavailable [place], N Marlo EMBALMER APPRENTICE Unavailable Unavailable Maverick, N Marlo EMBALMER APPRENTICE Unavailable Unavailable Maverick, N Marlo EMBALMER APPRENTICE Unavailable Unavailable Maverick, N Marlo EMBALMER APPRENTICE Unavailable Unavailable [place], N Marlo EMBALMER APPRENTICE Unavailable Unavailable Maverick, N Marlo EMBALMER APPRENTICE Unavailable Unavailable [place], N Marlo EMBALMER APPRENTICE Unavailable Unavailable Maverick, N Marlo EMBALMER APPRENTICE Unavailable Unavailable Maver[place], N Marlo EMBALMER APPRENTICE Unavailable Unavailable [place], N Marlo EMBALMER APPRENTICE Unavailable Unavailable Maverick, N Marlo EMBALMER APPRENTICE Unavailable Unavailable [place], N Marlo EMBALMER APPRENTICE Unavailable Unavailable [place], N Marlo EMBALMER APPRENTICE Unavailable Unavailable Maver[place], N Marlo EMBALMER APPRENTICE Unavailable Unavailable [place], N Marlo EMBALMER APPRENTICE Unavailable Unavailable Maver[place], N Marlo EMBALMER APPRENTICE Unavailable Unavailable [place], N Marlo EMBALMER APPRENTICE Unavailable Unavailable [place], N Marlo EMBALMER APPRENTICE Unavailable Unavailable Maver[place], N Marlo EMBALMER APPRENTICE Unavailable Unavailable [place], N Marlo EMBALMER APPRENTICE Unavailable Unavailable [place], N Marlo EMBALMER APPRENTICE Unavailable Unavailable Maverick, N Marlo EMBALMER APPRENTICE Unavailable Unavailable [place], N Marlo EMBALMER APPRENTICE Unavailable Unavailable Re-disclosure Warning The records that [...] is protected by Article 27-F of the [facility] Public Health law. If you continue you may have access to information: Regarding HIV / AIDS; Provided by facilities licensed or operated by the [facility] Office of Mental Health; or Provided by the [facility] Office for People With Developmental Disabilities. If such information is present, then the following [facility] mandated warning applies: This information has been [...] law may result in a fine or fdc sentence or both. A general authorization for [...] Marlo NERI-SJPCrissyKENA 01/14/2020 12 :00:00 AM EST [facility] Attender: Marlo NERI-SJPCrissyKENA 020 01:22:56 PM EDT - 12/10/2019 01:50:39 PM EDT [facility] 03/13/2019 08:03:00 PM EST [facility] Medications Medication Brand Name Start [...] CAPSULE BY MOUTH EVERY DAY SOLD: 09/01/2019 [facility] 300 mg 08/30/2019 12:00:00 AM EDT [...] type / Coverage type Policy ID Covered republican ID Covered republican's relationship to bryan Policy Bryan Plan Information OTHER [employer]EMPLOY[employer] [id number] SP 1 [id number] [employer] [place] PPO [id number] SP [id number] [employer] [id number] Sushma CGP [id number] [employer] BCBS B [id number] S CGP [id number] [employer] FEDERAL EMPLOYEE PROGRAM [id number] SP [id number] [employer] [place] Commercial [id number] Self [id number] [employer] [place] FEDERAL B [id number] S [id number] [employer] FEDERAL [id number] SP [id number] [employer] [place] PPO [id number] SP [id number] [employer] BC-BS PPO 306 [id number] SP [id number] [employer] BC-BS PPO 306 [id number] SP [id number] [employer] [place] PPO 302/307 [id number] SP [id number] Problems, Conditions, and Diagnoses Code Display Name Description Problem Type Effective Dates Data Source(s) R94.31 Abnormal electrocardiogram [ECG] [EKG] A bnormal electrocardiogram (ECG) (EKG) Diagnosis 12/10/2019 01:22:56 PM EDT [facility] I77.810 Thoracic aortic ectasia Thoracic aortic ectasia Diagno sis 12/10/2019 01:22:56 PM EDT [facility] R07.89 Other chest pain Other chest pain Diagnosis 12/10/2019 01 :22:56 PM EDT [facility] Results ID Date Data Source [id number] 01/14/2020 06:39:40 PM EST [facility] Name Value Range Interpretation Code Description Data Josie rce(s) Supporting Document(s) &PDF [facility] LJSCNg1bUfVPWvAc84/MDJnxATZph5YqGAimRHg3APhaSFWwV8OitQleVVHELLBNACXWBGAcPVwMLpGG hdG [file] ICAgICAgICAgICAgICAgICAgICAgICAgICAgICAgICAgICAgICAgICAgICAgICAgICAgICAgICAgICAN CiAgICAgICAgICAgICAgICAgICAgICAgICAgICAgIC AgICAgICAgICAgICAgICAgICAgICAgICAgICAgICAgICAgICAgICAgICAgICAgICAgICAgICAgICAgIC AgICAgICAgICANCiAgICAgICAgICAgICAgICAgICAgICAgICAgICAgICAgICAgICAgICAgICAgICAgIC AgICAgICAgICAgICAgICAgICAgICAgICAgICAgICAg ICAgICAgICAgICAgICAgICAgICANCiAgICAgICAgICAgICAgICAgICAgICAgICAgICAgICAgICAgICAg ICAgICAgICAgICAgICAgICAgICAgICAgICAgICAgICAgICAgICAgICAgICAgICAgICAgICAgICAgICAg ICANCiAgICAgICAgICAgICAgICAgICAgICAgICAgIC AgICAgICAgICAgICAgICAgICAgICAgICAgICAgICAgICAgICAgICAgICAgICAgICAgICAgICAgICAgIC AgICAgICAgICAgICANCiAgICAgICAgICAgICAgICAgICAgICAgICAgICAgICAgICAgICAgICAgICAgIC AgICAgICAgICAgICAgICAgICAgICAgICAgICAgICAg ICAgICAgICAgICAgICAgICAgICAgICANCiAgICAgICAgICAgICAgICAgICAgICAgICAgICAgICAgICAg ICAgICAgICAgICAgICAgICAgICAgICAgICAgICAgICAgICAgICAgICAgICAgICAgICAgICAgICAgICAg ICAgICANCiAgICAgICAgICAgICAgICAgICAgICAgIC AgICAgICAgICAgICAgICAgICAgICAgICAgICAgICAgICAgICAgICAgICAgICAgICAgICAgICAgICAgIC AgICAgICAgICAgICAgICANCiAgICAgICAgICAgICAgICAgICAgICAgICAgICAgICAgICAgICAgICAgIC AgICAgICAgICAgICAgICAgICAgICAgICAgICAgICAg ICAgICAgICAgICAgICAgICAgICAgICAgICANCiAgICAgICAgICAgICAgICAgICAgICAgICAgICAgICAg ICAgICAgICAgICAgICAgICAgICAgICAgICAgICAgICAgICAgICAgICAgICAgICAgICAgICAgICAgICAg ICAgICAgICANCjw/xZPyG7weqGBsbgI7C7ozZu2KYo 3YPZ5uy1NcRUWyYPsgkxUkKtnSKpTqURTwImaHJsn6RUapLH1RpNFdU1BhC2FgLFtgPP1BJTWbNEAsyC GuDZZlTQBvQeN4FVOiMDzzVO7JqTKlDOibRUVaMTVpOwUwELShJK9RJJUkR542vsJcYe8EDf5FVqVgZQ 7koz3YDkAyKHKpWzxHZoe1SRmuIA0FpQRxQ7OoqLFo h2lRMfTcD0XIGWS0QNXvJi2LFDGyHcXkVCLeJPvhLE5eITJlVNCUmLqmemJ0KK4GOO3yedXkZP5OYyHy Hf3jDg9BSjHvD2SdP2QhDQLuNYZFCEwfZR3DSYJwETJ5OZBvUGQlDDRYUuUjR76gIM6PN5Vqh43jJfL7 GHNvXtRqZNfkAL77qAoskaEnjWChsOtcUM2IYw0+DQ ziswJpAgzEEzwwWOKCKuPxHbBHZeAcQTEuEKQzUHIxSuY6DzCpDk4UFQEoPKPqVGYsWfWsOPFxNKPqUJ dpGMJkIXB1JDV8ZRGaWRHdUV7VZjHjTFTeWHe8MtomAHPxYIWhqk3HRNVoFKOxERU9OFZgZLClUXVsKJ acEJEqTGJcAqL4KUGfVOVtHU1GQdUkFVPjELL3TtRm TJBmLAKgoa3FIFEfWRGjWXJ3HiUyZDEtQHTqNDyvAOLhSBE7YrJ2GRDgUQZwBH6QJmHoHHZiIIVfDGMb GKIoIMXliy3YVPNkEOOhJkRwVjPvHHRdBPTeSTecVNLvHYX4ImdvNHWsKQKnKJ0ATeAkLUXrHSa1UODo JKXaMIQbgj6IXSNtXTBvElm2UEWhJMPvETKvIGboHY GfVND7CHTeXDBtAQKgNI9RRnMyWJJzDGkqWOOhXWCqFVZomb0PLZFzLHIhBMPvIFWiXRJhPUYxEYpbQC LhMSX5Wnx8RVDwWGVzSU8YMeVfHBOeKJXmRgquUFZnCLZliy1RDHHoEEMxKPH6RkDoUVSzBKGqUKqxYB JuCWY0BAC8LZNwJMWzMS2TKhYkPDTsXEh9SiIeQZRe SJRzjg8XyHAhyCdvpa4ETGcILo2YlUbxULHbLOhrIk7hsWGfKVJfZVFRHv8QphOqNLPjQLTASShfNKJt JIF6AdqgWTA6COGkPYK4BDV6SLIdGTO4TpKpZbGkJmWyLzX2IdJiV5BiCOXxCQXkNHscXYb8UEK9WVu0 MjAyNmJiMGQ+GD0kOOx+Ro3Do3HuvtA1fmMgKZhcDXM1DH9AGIRSX6JIOl== Procedure
[2020-04-12 17:08] LABS: BASO % 0.5 % (0.0-1.0); EOS # 0.2 10^3/uL (0.0-0.5); EOS % 3.2 % (0.0-3.0); HEMATOCRIT 52.2 % (42.0-52.0); HEMOGLOBIN 17.2 g/dl (13.5-17.5); LYMPH % 31.1 % (24.0-44.0); MEAN CORPUSCULAR HEMOGLOBIN 28.6 pg (27.0-33.0); MEAN CORPUSCULAR VOLUME 86.7 fl (80.0-96.0); MONO # 0.6 10^3/uL (0.0-0.8); MONO % 8.5 % (2.0-8.0); NEUTROPHILS # 3.7 10^3/uL (1.5-8.5); NEUTROPHILS % 56.4 % (36.0-66.0); PLATELET COUNT, AUTOMATED 198 10^3/uL (150-450); RED BLOOD COUNT 6.02 10^6/uL (4.30-6.10); WHITE BLOOD COUNT 6.5 10^3/uL (4.0-10.0)
[2020-04-12 17:26] LABS: ERYTHROCYTE SEDIMENTATION RATE 4 mm/hr (0-20)
[2020-04-12 17:39] LABS: C REACTIVE PROTEIN QUANTITATIV 0.35 MG/DL (0.00-0.30)
[2020-04-12] MEDS ORDERED: PRED20TA PO (18:04)
[2020-04-12 18:15] VITALS: BP 145/90
== END 2020-04-12 18:17 | disposition home or self-care (01) ==
LOC: M ED 15:35
DX: M25.462 Effusion, left knee (principal); X50.1XXA Overexertion from prolonged static or awkward postures, initial encounter; Y92.9 Unspecified place or not applicable; Y93.9 Activity, unspecified; Y99.9 Unspecified external cause status; J45.909 Unspecified asthma, uncomplicated; E78.5 Hyperlipidemia, unspecified; I10 Essential (primary) hypertension; M10.9 Gout, unspecified; E03.9 Hypothyroidism, unspecified; M75.50 Bursitis of unspecified shoulder; Z79.51 Long term (current) use of inhaled steroids; Z79.52 Long term (current) use of systemic steroids; Z79.82 Long term (current) use of aspirin; Z79.899 Other long term (current) drug therapy

== ENCOUNTER → 2020-09-19 | Outpatient (CLI) | payer OTHER, BC ==
[~2020-09-19] MED LIST changes: +PRED20TA PO
[2020-09-19 16:05] LABS: HEMOGLOBIN 17.7 g/dl (13.5-17.5); MEAN CORPUSCULAR HEMOGLOBIN 29.5 pg (27.0-33.0); MEAN CORPUSCULAR VOLUME 86.7 fl (80.0-96.0); PLATELET COUNT, AUTOMATED 177 10^3/uL (150-450); WHITE BLOOD COUNT 6.9 10^3/uL (4.0-10.0)
[2020-09-19 16:15] LABS: INR 0.91; PROTHROMBIN TIME 12.7 SECONDS (12.7-14.5)
[2020-09-19 16:16] LABS: PARTIAL THROMBOPLASTIN TIME 33.7 SECONDS (25.9-37.0)
[2020-09-19 16:25] LABS: ALBUMIN 4.1 GM/DL (3.2-5.2); ALT/SGPT 45 U/L (12-78); BILIRUBIN,TOTAL 0.4 MG/DL (0.2-1.0); BLOOD UREA NITROGEN 17 MG/DL (7-18); CALCIUM LEVEL 9.1 MG/DL (8.8-10.2); CARBON DIOXIDE LEVEL 30 MEQ/L (21-32); CHLORIDE LEVEL 101 MEQ/L (98-107); CREATININE FOR GFR 0.66 MG/DL (0.70-1.30); GLOMERULAR FILTRATION RATE > 60.0 (>49); GLUCOSE, FASTING 85 MG/DL (70-100); POTASSIUM SERUM 3.7 MEQ/L (3.5-5.1); SODIUM LEVEL 137 MEQ/L (136-145); TOTAL PROTEIN 7.7 GM/DL (6.4-8.2)
== END ==
LOC: M PLALAB 14:04
PROVIDERS: ATTEND Physician Assistant
DX: Z01.818 Encounter for other preprocedural examination (principal)

== ENCOUNTER → 2021-03-29 | Outpatient (CLI) | payer BC ==
[2021-03-29 10:47] LABS: HEMATOCRIT 50.3 % (42.0-52.0); HEMOGLOBIN 17.2 g/dl (13.5-17.5); MEAN CORPUSCULAR HEMOGLOBIN 29.4 pg (27.0-33.0); MEAN CORPUSCULAR HGB CONC 34.2 g/dl (32.0-36.5); PLATELET COUNT, AUTOMATED 158 10^3/uL (150-450); RED BLOOD COUNT 5.85 10^6/uL (4.30-6.10); WHITE BLOOD COUNT 5.9 10^3/uL (4.0-10.0)
[2021-03-29 11:13] LABS: HEMOGLOBIN A1c 5.5 %
[2021-03-29 11:19] LABS: ALBUMIN 3.8 GM/DL (3.2-5.2); ALT/SGPT 50 U/L (12-78); BILIRUBIN,TOTAL 0.5 MG/DL (0.2-1.0); BLOOD UREA NITROGEN 17 MG/DL (7-18); CALCIUM LEVEL 8.9 MG/DL (8.8-10.2); CARBON DIOXIDE LEVEL 28 MEQ/L (21-32); CHLORIDE LEVEL 103 MEQ/L (98-107); CHOLESTEROL LEVEL 187 MG/DL (<200); CHOLESTEROL RISK RATIO 5.342 (<5); CREATININE FOR GFR 0.76 MG/DL (0.70-1.30); GLOMERULAR FILTRATION RATE > 60.0 (>49); GLUCOSE, FASTING 99 MG/DL (70-100); HDL CHOLESTEROL 35 MG/DL (>40); LDL CHOLESTEROL 98 MG/DL (<100); NON-HDL-C 152 MG/DL; POTASSIUM SERUM 3.9 MEQ/L (3.5-5.1); PROSTATIC SPECIFIC AG MONITOR 1.59 NG/ML (< 4.00); SODIUM LEVEL 137 MEQ/L (136-145); TOTAL PROTEIN 7.2 GM/DL (6.4-8.2); TRIGLYCERIDES LEVEL 271 MG/DL (<150)
[2021-03-30 09:44] LABS: TESTOSTERONE 316 NG/DL (241-827)
== END ==
LOC: M RAD 09:59
PROVIDERS: ATTEND Family Medicine
DX: I10 Essential (primary) hypertension (principal); R53.83 Other fatigue; E03.9 Hypothyroidism, unspecified

== ENCOUNTER → 2021-07-08 | Outpatient (CLI) | payer OTHER ==
[2021-07-08 15:48] LABS: BLOOD UREA NITROGEN 22 MG/DL (7-18); CREATININE FOR GFR 0.78 MG/DL (0.70-1.30); GLOMERULAR FILTRATION RATE > 60.0 (>49)
== END ==
LOC: M LAB 14:41
PROVIDERS: ATTEND Physician Assistant
DX: S83.242S Other tear of medial meniscus, current injury, left knee, sequela (principal)

== ENCOUNTER → 2021-11-06 | Outpatient (CLI) | payer OTHER ==
[~2021-11-06] MED LIST changes: -TRIA37.53 PO; +TRIA37.577 PO
[2021-11-06 11:38] LABS: HEMATOCRIT 51.3 % (42.0-52.0); HEMOGLOBIN 17.6 g/dl (13.5-17.5); MEAN CORPUSCULAR HEMOGLOBIN 29.6 pg (27.0-33.0); MEAN CORPUSCULAR HGB CONC 34.3 g/dl (32.0-36.5); MEAN CORPUSCULAR VOLUME 86.2 fl (80.0-96.0); PLATELET COUNT, AUTOMATED 164 10^3/uL (150-450); RED BLOOD COUNT 5.95 10^6/uL (4.30-6.10); WHITE BLOOD COUNT 5.9 10^3/uL (4.0-10.0)
[2021-11-06 12:19] LABS: ALBUMIN 4.1 GM/DL (3.2-5.2); ALT/SGPT 31 U/L (12-78); BILIRUBIN,TOTAL 0.5 MG/DL (0.2-1.0); BLOOD UREA NITROGEN 18 MG/DL (7-18); CALCIUM LEVEL 9.3 MG/DL (8.8-10.2); CARBON DIOXIDE LEVEL 32 MEQ/L (21-32); CHLORIDE LEVEL 100 MEQ/L (98-107); CHOLESTEROL LEVEL 177 MG/DL (<200); CHOLESTEROL RISK RATIO 4.657 (<5); GLOMERULAR FILTRATION RATE > 60.0 (>49); GLUCOSE, FASTING 99 MG/DL (70-100); HDL CHOLESTEROL 38 MG/DL (>40); LDL CHOLESTEROL 83 MG/DL (<100); NON-HDL-C 139 MG/DL; PROSTATIC SPECIFIC AG MONITOR 0.54 NG/ML (< 4.00); SODIUM LEVEL 136 MEQ/L (136-145); THYROID STIMULATING HORMONE 0.694 uIU/ML (0.358-3.740); TOTAL PROTEIN 7.9 GM/DL (6.4-8.2); TRIGLYCERIDES LEVEL 281 MG/DL (<150)
[2021-11-06 12:34] LABS: HEMOGLOBIN A1c 5.8 %
[2021-11-06 12:59] LABS: TESTOSTERONE 367 NG/DL (241-827)
== END ==
LOC: M LAB 10:16
PROVIDERS: ATTEND Family Medicine
DX: E03.9 Hypothyroidism, unspecified (principal); I10 Essential (primary) hypertension; R53.83 Other fatigue

== ENCOUNTER → 2021-12-07 | Outpatient (CLI) | payer OTHER ==
[2021-12-07 12:15] LABS: BASO % 0.3 % (0.0-1.0); EOS # 0.3 10^3/uL (0.0-0.5); EOS % 4.7 % (0.0-3.0); HEMATOCRIT 50.9 % (42.0-52.0); HEMOGLOBIN 17.1 g/dl (13.5-17.5); LYMPH # 1.8 10^3/uL (1.5-5.0); LYMPH % 28.9 % (24.0-44.0); MEAN CORPUSCULAR HEMOGLOBIN 29.6 pg (27.0-33.0); MEAN CORPUSCULAR HGB CONC 33.6 g/dl (32.0-36.5); MEAN CORPUSCULAR VOLUME 88.2 fl (80.0-96.0); MONO # 0.5 10^3/uL (0.0-0.8); MONO % 8.5 % (2.0-8.0); NEUTROPHILS # 3.6 10^3/uL (1.5-8.5); NEUTROPHILS % 57.4 % (36.0-66.0); PLATELET COUNT, AUTOMATED 166 10^3/uL (150-450); RED BLOOD COUNT 5.77 10^6/uL (4.30-6.10); WHITE BLOOD COUNT 6.3 10^3/uL (4.0-10.0)
[2021-12-07 13:09] LABS: ALBUMIN 3.9 GM/DL (3.2-5.2); PERCENT SATURATION 20.6 % (19.7-50.0)
== END ==
LOC: M LAB 11:21
PROVIDERS: ATTEND Orthopaedic Surgery
DX: Z00.00 Encounter for general adult medical examination without abnormal findings (principal); M25.552 Pain in left hip

== ENCOUNTER → 2021-12-07 | Outpatient (CLI) | payer OTHER ==
[2021-12-07 13:06] LABS: BLOOD UREA NITROGEN 16 MG/DL (7-18); CREATININE FOR GFR 0.78 MG/DL (0.70-1.30); GLOMERULAR FILTRATION RATE > 60.0 (>49)
== END ==
LOC: M LAB 11:25
PROVIDERS: ATTEND Physician Assistant
DX: S83.272D Complex tear of lateral meniscus, current injury, left knee, subsequent encounter (principal); W18.30XD Fall on same level, unspecified, subsequent encounter; Y92.009 Unspecified place in unspecified non-institutional (private) residence as the place of occurrence of the external cause

== ENCOUNTER → 2022-01-19 | Outpatient (CLI) | payer OTHER ==
[2022-01-19 13:02] LABS: HEMATOCRIT 50.1 % (42.0-52.0); MEAN CORPUSCULAR HEMOGLOBIN 29.6 pg (27.0-33.0); MEAN CORPUSCULAR HGB CONC 33.9 g/dl (32.0-36.5); MEAN CORPUSCULAR VOLUME 87.3 fl (80.0-96.0); PLATELET COUNT, AUTOMATED 182 10^3/uL (150-450); RED BLOOD COUNT 5.74 10^6/uL (4.30-6.10); WHITE BLOOD COUNT 6.1 10^3/uL (4.0-10.0)
[2022-01-19 13:15] LABS: CHLORIDE LEVEL 102 MMOL/L (98-107); INR 0.98; POTASSIUM SERUM 4.3 MMOL/L (3.5-5.1); PROTHROMBIN TIME 13.2 SECONDS (12.5-14.5); SODIUM LEVEL 141 MMOL/L (136-145)
[2022-01-19 13:16] LABS: ALBUMIN 4.2 G/DL (3.2-5.2); CARBON DIOXIDE LEVEL 29 MMOL/L (20-31)
[2022-01-19 13:20] LABS: BILIRUBIN,TOTAL 0.7 MG/DL (0.3-1.2); CREATININE FOR GFR 0.68 MG/DL (0.70-1.30); GLOMERULAR FILTRATION RATE > 60.0 (>49)
[2022-01-19 13:21] LABS: BLOOD UREA NITROGEN 24 MG/DL (9-23); TRIGLYCERIDES LEVEL 238 MG/DL (<150)
[2022-01-19 13:22] LABS: CALCIUM LEVEL 9.5 MG/DL (8.3-10.6); GLUCOSE, FASTING 96 MG/DL (74-106); HDL CHOLESTEROL 37.8 MG/DL (>40); HEMOGLOBIN A1c 5.1 % (4.0-6.0); TOTAL IRON BINDING CAPACITY 326 UG/DL (250-425); TOTAL PROTEIN 7.3 G/DL (5.7-8.2)
[2022-01-19 13:23] LABS: THYROID STIMULATING HORMONE 1.161 uIU/ML (0.55-4.78)
[2022-01-19 13:24] LABS: ALT/SGPT 27 U/L (7.0-40); CHOLESTEROL LEVEL 162 MG/DL (<200); CHOLESTEROL RISK RATIO 4.28 (<5); IRON (FE) 89 UG/DL (65-175); LDL CHOLESTEROL 76.6 MG/DL (<100); NON-HDL-C 124 MG/DL; PERCENT SATURATION 27.3 % (19.7-50.0)
[2022-01-19 14:14] LABS: APPEARANCE, URINE MANUAL CLEAR (CLEAR); COLOR, URINE MANUAL YELLOW (YELLOW)
[2022-01-19 14:15] LABS: BILIRUBIN, URINE MANUAL NEGATIVE (NEGATIVE); BLOOD URINE MANUAL NEGATIVE (NEGATIVE); GLUCOSE, URINE (UA) MANUAL NEGATIVE (NEGATIVE); KETONE, URINE MANUAL NEGATIVE (NEGATIVE); LEUKOCYTE ESTERASE, URINE MAN NEGATIVE (NEGATIVE); NITRITE, URINE MANUAL NEGATIVE (NEGATIVE); PROTEIN, URINE MANUAL NEGATIVE (NEGATIVE); UROBILINOGEN, URINE MANUAL NORMAL (NORMAL)
== END ==
LOC: M RAD 11:01
PROVIDERS: ATTEND Family Medicine
DX: I10 Essential (primary) hypertension (principal)

== ENCOUNTER → 2022-04-29 | Outpatient (CLI) | payer OTHER | LOC: M RAD 11:58 | PROVIDERS: ATTEND Family Medicine | DX: J44.9 Chronic obstructive pulmonary disease, unspecified (principal) ==

== ENCOUNTER → 2022-07-14 | Outpatient (REF) | LOC: M PLAIMG 14:33 | PROVIDERS: ATTEND Internal Medicine | DX: Z11.52 Encounter for screening for COVID-19 (principal) ==

== ENCOUNTER → 2022-07-29 | Outpatient (CLI) | payer OTHER ==
[2022-07-29 11:14] LABS: HEMATOCRIT 54.3 % (42.0-52.0); HEMOGLOBIN 17.8 g/dl (13.5-17.5); MEAN CORPUSCULAR HEMOGLOBIN 29.2 pg (27.0-33.0); MEAN CORPUSCULAR HGB CONC 32.8 g/dl (32.0-36.5); MEAN CORPUSCULAR VOLUME 89.2 fl (80.0-96.0); PLATELET COUNT, AUTOMATED 153 10^3/uL (150-450); RED BLOOD COUNT 6.09 10^6/uL (4.30-6.10); WHITE BLOOD COUNT 8.5 10^3/uL (4.0-10.0)
[2022-07-29 11:43] LABS: ALKALINE PHOSPHATASE 64 U/L (46-116); ALT/SGPT 28 U/L (7.0-40); AST/SGOT 24 U/L (<34); BILIRUBIN,TOTAL 0.7 MG/DL (0.3-1.2); BLOOD UREA NITROGEN 17 MG/DL (9-23); CALCIUM LEVEL 8.7 MG/DL (8.3-10.6); CARBON DIOXIDE LEVEL 34 MMOL/L (20-31); CHLORIDE LEVEL 100 MMOL/L (98-107); CHOLESTEROL LEVEL 152 MG/DL (<200); CHOLESTEROL RISK RATIO 4.33 (<5); CREATININE FOR GFR 0.81 MG/DL (0.70-1.30); GLOMERULAR FILTRATION RATE > 60.0 (>49); GLUCOSE, FASTING 94 MG/DL (74-106); HDL CHOLESTEROL 35.1 MG/DL (>40); LDL CHOLESTEROL 80.3 MG/DL (<100); NON-HDL-C 116.9 MG/DL; POTASSIUM SERUM 4.3 MMOL/L (3.5-5.1); PROSTATIC SPECIFIC AG MONITOR 6.49 NG/ML (< 4.00); SODIUM LEVEL 140 MMOL/L (136-145); TOTAL PROTEIN 7.1 G/DL (5.7-8.2); TRIGLYCERIDES LEVEL 183 MG/DL (<150)
[2022-07-29 11:47] LABS: TESTOSTERONE 317 NG/DL (241-827); THYROID STIMULATING HORMONE 0.652 uIU/ML (0.55-4.78)
[2022-07-29 12:12] LABS: HEMOGLOBIN A1c 5.5 % (4.0-6.0)
== END ==
LOC: M LAB 09:52
PROVIDERS: ATTEND Family Medicine
DX: I10 Essential (primary) hypertension (principal)

== ENCOUNTER → 2022-08-20 | Outpatient (REF) | payer OTHER | LOC: M LABSMT 16:13 | PROVIDERS: ATTEND Urology | DX: Z53.9 Procedure and treatment not carried out, unspecified reason (principal) ==

== ENCOUNTER → 2022-09-03 | Outpatient (CLI) | payer OTHER ==
[2022-09-04 23:07] LABS: PSA TOTAL 1.1 ng/mL (0.0-4.0)
== END ==
LOC: M LAB 10:51
PROVIDERS: ATTEND Urology
DX: R97.20 Elevated prostate specific antigen [PSA] (principal)

== ENCOUNTER → 2023-01-02 | Outpatient (CLI) | payer MEDICARE ==
[2023-01-02 09:30] LABS: HEMATOCRIT 53.3 % (42.0-52.0); HEMOGLOBIN 17.9 g/dl (13.5-17.5); MEAN CORPUSCULAR HEMOGLOBIN 29.9 pg (27.0-33.0); MEAN CORPUSCULAR HGB CONC 33.6 g/dl (32.0-36.5); PLATELET COUNT, AUTOMATED 154 10^3/uL (150-450); RED BLOOD COUNT 5.99 10^6/uL (4.30-6.10)
[2023-01-02 09:54] LABS: PROSTATIC SPECIFIC AG MONITOR 0.51 NG/ML (< 4.00)
[2023-01-02 09:56] LABS: ALBUMIN 3.9 G/DL (3.2-5.2); ALKALINE PHOSPHATASE 56 U/L (46-116); ALT/SGPT 30 U/L (7.0-40); AST/SGOT 27 U/L (<34); BILIRUBIN,TOTAL 0.7 MG/DL (0.3-1.2); BLOOD UREA NITROGEN 20 MG/DL (9-23); CARBON DIOXIDE LEVEL 31 MMOL/L (20-31); CHLORIDE LEVEL 102 MMOL/L (98-107); CHOLESTEROL LEVEL 160 MG/DL (<200); CHOLESTEROL RISK RATIO 4.27 (<5); CREATININE FOR GFR 0.79 MG/DL (0.70-1.30); GLOMERULAR FILTRATION RATE > 60.0 (>49); GLUCOSE, FASTING 100 MG/DL (74-106); HDL CHOLESTEROL 37.4 MG/DL (>40); NON-HDL-C 122.6 MG/DL; POTASSIUM SERUM 3.9 MMOL/L (3.5-5.1); SODIUM LEVEL 141 MMOL/L (136-145); TOTAL PROTEIN 7.4 G/DL (5.7-8.2); TRIGLYCERIDES LEVEL 163 MG/DL (<150)
[2023-01-02 09:58] LABS: THYROID STIMULATING HORMONE 1.486 uIU/ML (0.55-4.78)
[2023-01-02 09:59] LABS: TESTOSTERONE 275 NG/DL (241-827)
[2023-01-02 10:53] LABS: HEMOGLOBIN A1c 5.3 % (4.0-6.0)
== END ==
LOC: M LAB 09:07
PROVIDERS: ATTEND Family Medicine
DX: I10 Essential (primary) hypertension (principal); R53.83 Other fatigue; E03.9 Hypothyroidism, unspecified; R97.20 Elevated prostate specific antigen [PSA]

== ENCOUNTER → 2023-03-29 | Outpatient (CLI) | payer MEDICARE ==
[2023-03-29 10:53] LABS: HEMATOCRIT 51.4 % (42.0-52.0); HEMOGLOBIN 17.6 g/dl (13.5-17.5); MEAN CORPUSCULAR HEMOGLOBIN 29.5 pg (27.0-33.0); MEAN CORPUSCULAR HGB CONC 34.2 g/dl (32.0-36.5); MEAN CORPUSCULAR VOLUME 86.2 fl (80.0-96.0); PLATELET COUNT, AUTOMATED 181 10^3/uL (150-450); RED BLOOD COUNT 5.96 10^6/uL (4.30-6.10); WHITE BLOOD COUNT 5.4 10^3/uL (4.0-10.0)
[2023-03-29 11:09] LABS: HEMOGLOBIN A1c 5.6 % (4.0-6.0)
[2023-03-29 11:22] LABS: PROSTATIC SPECIFIC AG MONITOR 0.43 NG/ML (< 4.00); TESTOSTERONE 146 NG/DL (241-827)
[2023-03-29 11:40] LABS: ALBUMIN 3.9 G/DL (3.2-5.2); ALKALINE PHOSPHATASE 56 U/L (46-116); ALT/SGPT 33 U/L (7.0-40); AST/SGOT 25 U/L (<34); BILIRUBIN,TOTAL 0.8 MG/DL (0.3-1.2); BLOOD UREA NITROGEN 15 MG/DL (9-23); CALCIUM LEVEL 8.8 MG/DL (8.3-10.6); CARBON DIOXIDE LEVEL 29 MMOL/L (20-31); CHLORIDE LEVEL 103 MMOL/L (98-107); CHOLESTEROL LEVEL 167 MG/DL (<200); CHOLESTEROL RISK RATIO 4.92 (<5); CREATININE FOR GFR 0.72 MG/DL (0.70-1.30); GLOMERULAR FILTRATION RATE > 60.0 (>49); GLUCOSE, FASTING 97 MG/DL (74-106); HDL CHOLESTEROL 33.9 MG/DL (>40); LDL CHOLESTEROL 88.9 MG/DL (<100); NON-HDL-C 133.1 MG/DL; POTASSIUM SERUM 3.6 MMOL/L (3.5-5.1); SODIUM LEVEL 140 MMOL/L (136-145); TOTAL PROTEIN 7.1 G/DL (5.7-8.2); TRIGLYCERIDES LEVEL 221 MG/DL (<150)
== END ==
LOC: M RAD 09:40
PROVIDERS: ATTEND Family Medicine
DX: I10 Essential (primary) hypertension (principal); E11.9 Type 2 diabetes mellitus without complications; D64.9 Anemia, unspecified; R97.20 Elevated prostate specific antigen [PSA]

== ENCOUNTER 2023-12-01 08:16 | Outpatient (CLI) | payer MEDICARE, OTHER ==
[~2023-12-01 08:16] MED LIST changes: -PRAV40TA2 PO; +PRAV40TA85 PO
[2023-12-01 09:27] LABS: PLATELET COUNT, AUTOMATED 146 10^3/uL (150-450)
[2023-12-01 09:31] LABS: PROSTATIC SPECIFIC AG MONITOR 1.09 NG/ML (< 4.00)
[2023-12-01 09:34] LABS: ALT/SGPT 37 U/L (7.0-40); AST/SGOT 22 U/L (<34); CALCIUM LEVEL 9.6 MG/DL (8.3-10.6); CARBON DIOXIDE LEVEL 30 MMOL/L (20-31); CHLORIDE LEVEL 103 MMOL/L (98-107); CHOLESTEROL LEVEL 179 MG/DL (<200); CHOLESTEROL RISK RATIO 5.32 (<5); CREATININE FOR GFR 0.70 MG/DL (0.70-1.30); GLOMERULAR FILTRATION RATE > 60.0 (>49); LDL CHOLESTEROL 89.8 MG/DL (<100); NON-HDL-C 145.4 MG/DL; POTASSIUM SERUM 4.0 MMOL/L (3.5-5.1); SODIUM LEVEL 138 MMOL/L (136-145); TRIGLYCERIDES LEVEL 278 MG/DL (<150)
[2023-12-01 09:37] LABS: TESTOSTERONE 245 NG/DL (241-827)
[2023-12-01 13:29] LABS: ESTIMATED AVERAGE GLUCOSE 117.0 MG/DL (60-110)
== END 2024-11-30 15:00 ==
LOC: M LAB 08:16
PROVIDERS: ATTEND Family Medicine
DX: I10 Essential (primary) hypertension (principal); R97.20 Elevated prostate specific antigen [PSA]

== ENCOUNTER → 2024-06-25 | Outpatient (CLI) | payer MEDICARE ==
[~2024-06-25] MED LIST changes: +PRAV40TA2 PO; -PRAV40TA85 PO
== END ==
LOC: M RAD 08:25
PROVIDERS: ATTEND Family Medicine
DX: R19.06 Epigastric swelling, mass or lump (principal); K86.9 Disease of pancreas, unspecified

== ENCOUNTER → 2024-06-27 | Outpatient (CLI) | payer MEDICARE ==
[2024-06-27 10:03] LABS: HEMATOCRIT 51.8 % (42.0-52.0); HEMOGLOBIN 17.4 g/dl (13.5-17.5); MEAN CORPUSCULAR HEMOGLOBIN 29.2 pg (27.0-33.0); MEAN CORPUSCULAR HGB CONC 33.6 g/dl (32.0-36.5); MEAN CORPUSCULAR VOLUME 86.9 fl (80.0-96.0); PLATELET COUNT, AUTOMATED 172 10^3/uL (150-450); RED BLOOD COUNT 5.96 10^6/uL (4.30-6.10); WHITE BLOOD COUNT 5.6 10^3/uL (4.0-10.0)
[2024-06-27 10:24] LABS: ALBUMIN 3.7 G/DL (3.2-5.2); ALKALINE PHOSPHATASE 54 U/L (40-129); ALT/SGPT 32 U/L (7.0-40); AST/SGOT 16 U/L (<34); BILIRUBIN,TOTAL 0.5 MG/DL (0.3-1.2); BLOOD UREA NITROGEN 19 MG/DL (9-23); CARBON DIOXIDE LEVEL 34 MMOL/L (20-31); CHLORIDE LEVEL 101 MMOL/L (98-107); CHOLESTEROL LEVEL 178 MG/DL (<200); CHOLESTEROL RISK RATIO 5.14 (<5); CREATININE FOR GFR 0.73 MG/DL (0.70-1.30); GLOMERULAR FILTRATION RATE > 90.0 (>49); GLUCOSE, FASTING 92 MG/DL (74-106); HDL CHOLESTEROL 34.6 MG/DL (>40); LDL CHOLESTEROL 105.6 MG/DL (<100); NON-HDL-C 143.4 MG/DL; POTASSIUM SERUM 3.9 MMOL/L (3.5-5.1); SODIUM LEVEL 140 MMOL/L (136-145); TRIGLYCERIDES LEVEL 189 MG/DL (<150)
[2024-06-27 10:30] LABS: PROSTATIC SPECIFIC AG MONITOR 0.54 NG/ML (< 4.00)
[2024-06-27 10:33] LABS: TESTOSTERONE 259 NG/DL (241-827)
[2024-06-27 10:45] LABS: THYROID STIMULATING HORMONE 1.047 uIU/ML (0.55-4.78)
[2024-06-27 11:42] LABS: HEMOGLOBIN A1c 5.8 % (4.0-6.0)
== END ==
LOC: M LAB 08:44
PROVIDERS: ATTEND Family Medicine
DX: R53.83 Other fatigue (principal); I10 Essential (primary) hypertension; R97.20 Elevated prostate specific antigen [PSA]

== ENCOUNTER → 2024-09-25 | Outpatient (CLI) | payer MEDICARE ==
[~2024-09-25] MED LIST changes: -PRAV40TA2 PO; +PRAV40TA85 PO
[2024-09-25 18:13] LABS: PLATELET COUNT, AUTOMATED 218 10^3/uL (150-450)
[2024-09-25 18:23] LABS: ESTIMATED AVERAGE GLUCOSE 120.0 MG/DL (60-110)
[2024-09-25 18:35] LABS: ALT/SGPT 38 U/L (7.0-40); AST/SGOT 31 U/L (<34); CALCIUM LEVEL 9.4 MG/DL (8.3-10.6); CARBON DIOXIDE LEVEL 33 MMOL/L (20-31); CHLORIDE LEVEL 100 MMOL/L (98-107); CREATININE FOR GFR 0.86 MG/DL (0.70-1.30); GLOMERULAR FILTRATION RATE > 90.0 (>49); POTASSIUM SERUM 4.3 MMOL/L (3.5-5.1); PSA SCREENING 1.26 NG/ML (< 4.00); SODIUM LEVEL 143 MMOL/L (136-145)
[2024-09-25 18:39] LABS: FREE T4 1.26 NG/DL (0.89-1.76)
[2024-09-25 18:40] LABS: TESTOSTERONE 743 NG/DL (241-827)
== END ==
LOC: M PLALAB 16:35
PROVIDERS: ATTEND Student in an Organized Health Care Education/Training Program
DX: Z00.00 Encounter for general adult medical examination without abnormal findings (principal); R79.89 Other specified abnormal findings of blood chemistry; I10 Essential (primary) hypertension; E03.9 Hypothyroidism, unspecified; N40.1 Benign prostatic hyperplasia with lower urinary tract symptoms; Z87.39 Personal history of other diseases of the musculoskeletal system and connective tissue; Z12.5 Encounter for screening for malignant neoplasm of prostate
CPT/HCPCS: 36415; 80053; 83036; 84403; 84439; 84443; 84550; 85027; G0103

== ENCOUNTER → 2024-12-12 | Outpatient (CLI) | payer MEDICARE | LOC: M CARPUL 09:58 | PROVIDERS: ATTEND Student in an Organized Health Care Education/Training Program | DX: J44.9 Chronic obstructive pulmonary disease, unspecified (principal) ==

== ENCOUNTER → 2025-02-06 | Outpatient (CLI) | payer MEDICARE | LOC: M LAB 10:15 | PROVIDERS: ATTEND Student in an Organized Health Care Education/Training Program | DX: R79.89 Other specified abnormal findings of blood chemistry (principal) ==